=== PATIENT | male | born 1965 | race Caucasian/White ===

== ENCOUNTER 2017-11-24 08:42 | Emergency (ER) | payer OTHER ==
[2017-11-24 08:48] VITALS: BP 130/73; PULSE 88; TEMP 97.9; BMI 29.9
[2017-11-24] MEDS ORDERED: KETOROLAC TROMETHAMINE 60 MG/2 ML VIAL IM ONE (09:03)
[2017-11-24] MEDS ORDERED: KETOROLAC TROMETHAMINE 60 MG/2 ML VIAL ONE (09:05)
--- NOTE | 2017-11-24 09:10 | PDOC ---
History of Present Illness - General Chief Complaint: Back Pain Stated Complaint: BACK PAIN Time Seen by Provider: 11/24/17 09:03 History Source: Patient Exam Limitations: Clinical Condition - History of Present Illness Initial Comments: 11/24/17 09:04 Patient with history of sciatica presenting with complain of worsening lower back pain on the right side since last night and worsening this morning. Patient reported pain with improves with standing and gets worse with laying down or getting up from sitting. Patient reported pain radiates to back of lower thigh. Patient denies any other symptoms Timing/Duration: 24 hours Past History - Past Medical History Allergies/Adverse Reactions: Allergies Allergy/AdvReac Type Severity Reaction Status Date / Time Penicillins Allergy Verified 11/24/17 08:43 Home Medications: Ambulatory Orders Methocarbamol [Robaxin -] 500 mg PO TID #21 tablet 11/24/17 Naproxen 500 mg PO BID PRN #30 tablet 11/24/17 Cancer: Yes (TESTICULAR) COPD: No - Immunization History Immunization Up to Date: Yes - Suicide/Smoking/Psychosocial Hx Smoking History: Never smoked Hx Alcohol Use: No Drug/Substance Use Hx: No Review of Systems - Review of Systems Able to Perform ROS?: Yes Is the patient limited Kosovan proficient: No Constitutional: No: Malaise, Weakness Respiratory: No: Symptoms reported Cardiac (ROS): No: Symptoms Reported ABD/GI: No: Symptoms Reported Musculoskeletal: Yes: Back Pain (right side), Muscle Pain (lower back pain). No : Muscle Weakness, Joint Stiffness Neurological: No: Numbness, Tingling All Other Systems: Reviewed and Negative *Physical Exam - Vital Signs Last Vital Signs Temp Pulse Resp BP Pulse Ox 97.9 F 88 18 130/73 98 11/24/17 08:43 11/24/17 08:43 11/24/17 08:43 11/24/17 08:43 11/24/17 08:43 - Physical Exam Comments: 11/24/17 09:07 GENERAL: Well developed, well nourished. Awake and alert. No acute distress. CARDIOVASCULAR: Regular rate and rhythm. No murmurs, rubs, or gallops. PULMONARY: No evidence of respiratory distress. Lungs clear to auscultation bilaterally. No wheezing, rales or rhonchi. ABDOMINAL: Soft. Non-tender. Non-distended. No rebound or guarding. No organomegaly. Normoactive bowel sounds MUSCULOSKELETAL : mild tenderness over posterior paravertebral muscle of L4-S1. Pain worse with external rotation of hip. EXTREMITIES: No cyanosis. No clubbing. No edema. No calf tenderness. SKIN: Warm and dry. Normal capillary refill. No rashes. No jaundice. NEUROLOGICAL: Alert, awake, appropriate. No motor deficits in the lower extremities. Gait is normal without ataxia. PSYCHIATRIC: Cooperative. Good eye contact. Appropriate mood and affect. General Appearance: Yes: Nourished, Appropriately Dressed, Mild Distress ED Treatment Course - RADIOLOGY Radiology Studies Ordered: Category Date Time Status SPINE-LUMBAR SACRAL [RAD] Stat Radiology 11/24/17 09:03 Ordered Medical Decision Making - Medical Decision Making 11/24/17 09:08 Patient with history of sciatica present with complain of right lower back pain radiating to right posterior thigh area worsening since last night. Exam significant for moderate tenderness to right paravertebral muscle of lower lumbar spine. Toradol 60 mg IM given for pain. X-ray of lumbosacral ordered. Treat based on imaging results 11/24/17 09:39 X-rays of lumbosacral shows no acute change from imaging taking 4 years ago. Symptoms likely muscle spasm with sciatica. Patient be discharge or muscle relaxer and NSAIDs with orthopedics follow-up *DC/Admit/Observation/Transfer Diagnosis at time of Disposition: Sciatica Qualifiers: Laterality: right Qualified Code(s): M54.31 - Sciatica, right side Lumbago Qualifiers: Chronicity: acute Back pain laterality: right Sciatica presence: with sciatica Sciatica laterality: sciatica of right side Qualified Code(s): M54.41 - Lumbago with sciatica, right side - Discharge Dispostion Disposition: HOME Condition at time of disposition: Stable Decision to Admit order: No - Prescriptions Prescriptions: Methocarbamol [Robaxin -] 500 mg PO TID #21 tablet Naproxen 500 mg PO BID PRN #30 tablet PRN Reason: Back Pain - Referrals Referrals: Fuentes Griffith MD [Staff Physician] - - Patient Instructions Printed Discharge Instructions: DI for Back Pain With Sciatica Additional Instructions: Take medications as prescribed. Follow up with preferred orthopedics for possible MRI of the back as soon as possible - Post Discharge Activity Forms/Work/School Notes: Back to Work
[2017-11-24] MEDS ORDERED: CYCLOBENZAPRINE HCL 10 MG TABLET (FP) PO ONE (09:42)
[2017-11-24] MEDS ORDERED: CYCLOBENZAPRINE HCL 10 MG TABLET (FP) ONE (09:45)
== END 2017-11-24 09:54 | disposition home or self-care (01) ==
LOC: JERFT 08:42
PROC: 3E0233Z Introduction of Anti-inflammatory into Muscle, Percutaneous Approach (ICD-10-PCS; principal; 2017-11-24)
DX: M54.41 Lumbago with sciatica, right side (principal)
CPT/HCPCS: 72100-TC-FY; 99281-25